=== PATIENT | male | born 1995 | race Caucasian/White ===

== ENCOUNTER 2019-02-18 20:20 | Emergency (ER) | payer MEDICAID ==
[~2019-02-18] VITALS: Ht 182.9 cm; Wt 82.0 kg
[2019-02-18] MEDS ORDERED: LORazepam 1 MG tablet PO ONE (21:10)
[2019-02-18] MEDS ORDERED: nicotine 14mg patch - 24hr TD ONE (21:10)
[2019-02-18 21:15] LABS: CLARITY,URINE CLOUDY (Clear); COLOR,URINE YELLOW (Yellow); GLUCOSE, URINE NEGATIVE (Neg); KETONES,URINE NEGATIVE (Neg); LEUKOCYTE ESTERASE ,URINE TRACE (Neg); NITRITES, URINE NEGATIVE (Neg); OCCULT BLOOD,URINE NEGATIVE (Neg); PROTEIN,URINE NEGATIVE (Neg); UA COLLECTION TYPE CLN CATCH MIDSTREAM
[2019-02-18 21:20] LABS: BASOPHILS % (AUTO) 0.5 % (0-1); EOSINOPHILS # (AUTO) 0.1 X10'3 (0-0.9); EOSINOPHILS % (AUTO) 1.3 % (0-6); HEMATOCRIT 42.5 % (42.0-52.0); HEMOGLOBIN 13.9 g/dl (14.0-17.9); LYMPHOCYTES # (AUTO) 2.5 X10'3 (1.1-4.8); LYMPHOCYTES % (AUTO) 37.8 % (21-51); MEAN CORPUSCULAR HEMOGLOBIN 28.1 PG (27.0-31.0); MEAN CORPUSCULAR HGB CONC 32.7 g/dL (33.0-36.5); MEAN CORPUSCULAR VOLUME 85.8 FL (78-98); MEAN PLATELET VOLUME 8.3 FL (7.4-10.4); MONOCYTES # (AUTO) 0.4 X10'3 (0-0.9); MONOCYTES % (AUTO) 5.5 % (2-12); NEUTROPHILS # (AUTO) 3.6 X10'3 (1.8-7.7); NEUTROPHILS % (AUTO) 54.9 % (42-75); PLATELET COUNT 167 X10'3 (140-440); RED BLOOD COUNT 4.95 X10'6 (4.70-6.10); RED CELL DISTRIBUTION WIDTH 12.9 % (11.5-14.5); WHITE BLOOD COUNT 6.6 X10'3 (4.5-11.0)
[2019-02-18 21:23] LABS: RBC,URINE NONE SEEN /HPF (0-2); WBC,URINE 0-4 /HPF (0-4)
[2019-02-18 21:24] LABS: AMORPHOUS URATES 4+; BACTERIA,URINE FEW /HPF (Neg); SQUAMOUS EPITHELIAL CELL,UR FEW /LPF (FEW)
[2019-02-18 21:27] LABS: URINE AMPHETAMINE SCREEN NEGATIVE (Neg); URINE BARBITUATE SCREEN NEGATIVE (Neg); URINE BENZODIAZEPINES SCREEN NEGATIVE (Neg); URINE CANNABINOID SCREEN POSITIVE (Neg); URINE COCAINE SCREEN NEGATIVE (Neg); URINE METHADONE SCREEN NEGATIVE (Neg); URINE OPIATE SCREEN NEGATIVE (Neg); URINE PHENCYCLIDINE SCREEN NEGATIVE (Neg)
[2019-02-18 21:29] LABS: ALANINE AMINOTRANSFERASE 48 U/L (12-78); ALBUMIN 4.3 G/DL (3.4-5.0); ALBUMIN/GLOBULIN RATIO 1.5 (1.1-1.5); ALKALINE PHOSPHATASE 71 IU/L (46-116); ANION GAP 8 (8-16); ASPARTATE AMINO TRANSFERASE 33 U/L (10-37); BILIRUBIN,TOTAL 0.6 MG/DL (0.1-1.0); BLOOD UREA NITROGEN 16 MG/DL (7-18); BUN/CREATININE RATIO 18.6 (5.4-32.0); CALCIUM 8.8 MG/DL (8.5-10.1); CHLORIDE 105 MMOL/L (99-107); CREATININE 0.86 MG/DL (0.60-1.10); GLUCOSE 96 MG/DL (70-104); POTASSIUM 4.1 MMOL/L (3.5-5.1); SODIUM 140 MMOL/L (135-145); TOTAL CARBON DIOXIDE 27.2 MMOL/L (24-32); TOTAL PROTEIN 7.2 G/DL (6.4-8.2); eGFR > 90 ML/MIN
[2019-02-18 21:43] LABS: ETHANOL < 0.010 GM/DL (0.0-0.010)
[2019-02-18] MEDS ORDERED: BUPR150T27 PO (21:48)
[2019-02-18] MEDS ORDERED: BUPR1FIL5 PO (21:48)
[2019-02-18] MEDS ORDERED: GABA600T13 PO (21:48)
[2019-02-18] MEDS ORDERED: CLON1TAB12 PO (21:48)
--- NOTE | 2019-02-18 22:29 | NUR ---
pt is feeling overwhelmed, reports recent struggles with employment and "getting back on his feet." pt made some statements about taking his meds to his grandma who called police. pt denies si but reports feeling "insanely depressed."
--- NOTE | 2019-02-19 02:34 | NUR ---
pt continues to sleep, no s/s of distress noted.
--- NOTE | 2019-02-19 04:49 | NUR ---
pt is sleeping, rr unlabored.
--- NOTE | 2019-02-19 05:40 | NUR ---
pt continues to sleep, no s/s of distress noted
[2019-02-19] MEDS: buPROPion SR 150mg tablet PO SCH (09:23)
[2019-02-19] MEDS: gabapentin 300mg capsule PO SCH ×3 (09:23→21:04)
[2019-02-19] MEDS: clonazePAM 1mg tablet PO SCH ×3 (09:23→21:04)
[2019-02-19] MEDS: buprenorphine/naloxone 2-0.5mg sublingual tablet SL SCH (09:24)
[2019-02-19] MEDS ORDERED: LORazepam 1 MG tablet PO ONE (11:00)
[2019-02-19] MEDS ORDERED: nicotine 21mg patch - 24 hr TD ONE (11:00)
[2019-02-19] MEDS ORDERED: LORazepam 2 mg/ml vial IM ONE (13:00)
[2019-02-19] MEDS ORDERED: haloperidol lactate 5mg/ml inj IM ONE (13:00)
[2019-02-19] MEDS ORDERED: diphenhydrAMINE 50 mg/ml inj IM ONE (13:00)
--- NOTE | 2019-02-19 13:30 | NUR ---
Patient medicated with Benadryl, haldol, and ativan. Became progressively more agitated and restless and angry. Yelling at staff and making threats of violence including "kicking us all" if we tried to stop him from going to have a cigarette. Verbalized "If you try anything I can take you out, you're all small". As he was yelling and acting out, the patient picked up a chair witht the intent to throw it at the staff. Security arrived and was able to intervene for the safety of staff and other patients.
--- NOTE | 2019-02-19 14:20 | NUR ---
Patient asleep after medications given. Respirations normal
--- NOTE | 2019-02-19 18:45 | NUR ---
Patient is sleeping, low fowlers position. Bed is in direct view from nursing station.
[2019-02-19] MEDS ORDERED: LORazepam 1 MG tablet PO PRN (20:35)
[2019-02-19] MEDS ORDERED: temazepam 15mg capsule PO ONE (20:35)
--- NOTE | 2019-02-19 21:00 | NUR ---
Patient is awake, cooperative, thought is linear. Patient denies H/I, S/I, at this time.
[2019-02-19] MEDS: NICOTINE POLACRILEX 2 MG LOZENGE BC PRN (21:09)
--- NOTE | 2019-02-20 05:12 | NUR ---
Patient is sleeping well, mid fowlers position in bed.
[2019-02-20 05:46] VITALS: BP 97/54
[2019-02-20] MEDS: clonazePAM 1mg tablet PO SCH (08:21)
[2019-02-20] MEDS: gabapentin 300mg capsule PO SCH (08:21)
[2019-02-20] MEDS: buPROPion SR 150mg tablet PO SCH (08:21)
[2019-02-20] MEDS: buprenorphine/naloxone 2-0.5mg sublingual tablet SL SCH (08:41)
--- NOTE | 2019-02-20 09:32 | NUR ---
pt awake. no issues at this time
[2019-02-20] MEDS: NICOTINE POLACRILEX 2 MG LOZENGE BC PRN (11:51)
== END 2019-02-20 12:29 ==
LOC: ER 20:20
DX: F32.9 Major depressive disorder, single episode, unspecified (principal); F41.9 Anxiety disorder, unspecified; F12.90 Cannabis use, unspecified, uncomplicated; Z79.899 Other long term (current) drug therapy
CPT/HCPCS: 36415; 80053; 80305; 80320; 81001; 84443; 85025; 96372; 99285; J1200; J1630; J2060

== ENCOUNTER 2019-02-20 11:19 | Inpatient (IN) | payer MEDICAID ==
[~2019-02-20] VITALS: Ht 182.9 cm; Wt 75.8 kg
[~2019-02-20 11:19] MED LIST: BUPR150T27 PO; BUPR1FIL5 PO; CLON1TAB12 PO; GABA600T13 PO
[2019-02-20] MEDS ORDERED: acetaminophen 325mg tablet PO PRN ×2 (12:50)
[2019-02-20] MEDS ORDERED: mag hydrox/Alum hydrox/simeth 30ml oral suspension PO PRN (12:50)
[2019-02-20] MEDS ORDERED: magnesium hydroxide 30ml (MOM) UD suspension PO PRN (12:50)
[2019-02-20] MEDS ORDERED: tuberculin, purif. prot. deriv. 5 units/0.1ml ID ONE (12:50)
[2019-02-20] MEDS ORDERED: loperamide 2mg capsule PO PRN (12:55)
[2019-02-20] MEDS ORDERED: LORazepam 1 MG tablet PO PRN (12:55)
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
[2019-02-20 13:06] VITALS: BP 104/69
[2019-02-20] MEDS: nicotine 21mg patch - 24 hr TD SCH (13:22)
--- NOTE | 2019-02-20 13:41 | NUR ---
Nursing Note: Contact information for pt. Pt's mother, Pilar Donovan [phone] and pt's grandmother, Lor [phone]. Pt's case filler at [facility] is Marylou [phone].
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
[2019-02-20] MEDS ORDERED: clonazePAM 1mg tablet PO ONE (19:40)
[2019-02-20 20:00] VITALS: BP 114/72
[2019-02-20] MEDS: clonazePAM 1mg tablet PO SCH (20:34)
[2019-02-20] MEDS: gabapentin 300mg capsule PO SCH (20:34)
[2019-02-20] MEDS: NICOTINE POLACRILEX 2 MG LOZENGE MM PRN (22:02)
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
[2019-02-21 07:10] LABS: HEMOGLOBIN A1C 5.2 % (4.5-6.2)
[2019-02-21 07:20] LABS: CHOLESTEROL 133 MG/DL (0-200); HDL CHOLESTEROL 45 MG/DL (35-60); LDL CHOLESTEROL 78 MG/DL (50-100); TRIGLYCERIDES 55 MG/DL (20-135)
[2019-02-21] MEDS: clonazePAM 1mg tablet PO SCH ×3 (07:58→20:17)
[2019-02-21] MEDS: buPROPion SR 150mg tablet PO SCH (07:58)
[2019-02-21] MEDS: buprenorphine/naloxone 2-0.5mg sublingual tablet SL SCH (07:58)
[2019-02-21] MEDS: gabapentin 300mg capsule PO SCH ×3 (07:59→20:17)
[2019-02-21] MEDS ORDERED: benztropine 1mg tablet PO STA (08:20)
[2019-02-21] MEDS ORDERED: benztropine 1mg tablet ONE (08:21)
[2019-02-21] MEDS: nicotine 21mg patch - 24 hr TD SCH (08:24)
[2019-02-21] MEDS: NICOTINE POLACRILEX 2 MG LOZENGE MM PRN ×5 (11:00→22:19)
--- NOTE | 2019-02-21 12:26 | NUR ---
Malnutrition consult: No documented wt hx however current wt appropriate with BMI 21.7. Pt with no edema or wounds. Currently on regular diet with documented 100% PO intake meeting nutrient needs. Pt currently does not meet criteria for malnutrition. Will continue to follow. Addendum: 02/21/19 at [address] Amended: Links added.
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
[2019-02-21] MEDS: hydrOXYzine 25 MG tablet PO PRN (19:14)
[2019-02-21 20:00] VITALS: BP 112/70
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
[2019-02-22] MEDS: hydrOXYzine 25 MG tablet PO PRN (02:18)
[2019-02-22] MEDS: NICOTINE POLACRILEX 2 MG LOZENGE MM PRN ×5 (04:25→20:27)
[2019-02-22] MEDS: clonazePAM 1mg tablet PO SCH ×3 (07:13→21:00)
[2019-02-22] MEDS: buPROPion SR 150mg tablet PO SCH (07:13)
[2019-02-22] MEDS: gabapentin 300mg capsule PO SCH ×3 (07:13→20:56)
[2019-02-22] MEDS: buprenorphine/naloxone 2-0.5mg sublingual tablet SL SCH (07:14)
[2019-02-22] MEDS: nicotine 21mg patch - 24 hr TD SCH (07:17)
[2019-02-22 08:00] VITALS: BP 98/69
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
[2019-02-22 19:00] VITALS: BP 102/64
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
[2019-02-23] MEDS: gabapentin 300mg capsule PO SCH ×3 (07:26→20:27)
[2019-02-23] MEDS: clonazePAM 1mg tablet PO SCH ×3 (07:26→20:28)
[2019-02-23] MEDS: buPROPion SR 150mg tablet PO SCH (07:26)
[2019-02-23] MEDS: buprenorphine/naloxone 2-0.5mg sublingual tablet SL SCH (07:27)
[2019-02-23] MEDS: nicotine 21mg patch - 24 hr TD SCH (07:30)
[2019-02-23 08:00] VITALS: BP 98/66
[2019-02-23] MEDS ORDERED: ATOMOXETINE 80 MG PO SCH (08:00)
[2019-02-23] MEDS: ATOMOXETINE 80 MG PO SCH (08:00)
[2019-02-23] MEDS: NICOTINE POLACRILEX 2 MG LOZENGE MM PRN ×4 (08:51→20:28)
[2019-02-23] MEDS: hydrOXYzine 25 MG tablet PO PRN ×2 (10:29→21:41)
[2019-02-23] MEDS ORDERED: ziprasidone 20mg capsule PO STA (12:45)
[2019-02-23] MEDS ORDERED: LORazepam 1 MG tablet PO STA (12:45)
[2019-02-23] MEDS ORDERED: diphenhydrAMINE 25mg capsule PO STA (12:45)
[2019-02-23] MEDS ORDERED: clonazePAM 1mg tablet PO ONE (13:30)
[2019-02-23] MEDS ORDERED: NICOTINE POLACRILEX 2 MG LOZENGE BC ONE (13:40)
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
--- NOTE | 2019-02-23 18:08 | NUR ---
Kevin RIOS notified that pt ran out of Strattera at home it is non-formulary with hospital pharmacy.
[2019-02-23 20:00] VITALS: BP 119/70
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
[2019-02-24] MEDS: NICOTINE POLACRILEX 2 MG LOZENGE MM PRN ×6 (05:48→23:53)
[2019-02-24] MEDS: buPROPion SR 150mg tablet PO SCH ×2 (07:30→20:46)
[2019-02-24] MEDS: clonazePAM 1mg tablet PO SCH ×3 (07:30→20:36)
[2019-02-24] MEDS: gabapentin 300mg capsule PO SCH ×3 (07:30→20:35)
[2019-02-24] MEDS: buprenorphine/naloxone 2-0.5mg sublingual tablet SL SCH (07:31)
[2019-02-24] MEDS: nicotine 21mg patch - 24 hr TD SCH (07:33)
[2019-02-24] MEDS: ATOMOXETINE 80 MG PO SCH (08:00)
[2019-02-24 08:20] VITALS: BP 111/60
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
--- NOTE | 2019-02-24 14:45 | NUR ---
PLEASE DISREGARD THIS NOTE IT WAS ACCIDENTLY SAVED BEFORE COMPLETION BY HITTING A RANDOM RIVAS ON THE KEYBOARD.
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
[2019-02-24 19:57] VITALS: BP 96/51
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
[2019-02-25] MEDS: NICOTINE POLACRILEX 2 MG LOZENGE MM PRN ×7 (04:34→21:01)
[2019-02-25 07:30] VITALS: BP 110/84
[2019-02-25] MEDS: buPROPion SR 150mg tablet PO SCH ×2 (07:34→20:35)
[2019-02-25] MEDS: gabapentin 300mg capsule PO SCH ×3 (07:34→20:37)
[2019-02-25] MEDS: buprenorphine/naloxone 2-0.5mg sublingual tablet SL SCH (07:34)
[2019-02-25] MEDS: clonazePAM 1mg tablet PO SCH ×3 (07:34→20:35)
[2019-02-25] MEDS: nicotine 21mg patch - 24 hr TD SCH (07:35)
[2019-02-25] MEDS: ATOMOXETINE 80 MG PO SCH (08:00)
[2019-02-25] MEDS: hydrOXYzine 25 MG tablet PO PRN (09:56)
[2019-02-25] MEDS: ATOMOXETINE 80 MG CAPSULE PO SCH (11:54)
--- NOTE | 2019-02-25 14:32 | NUR ---
Good appetite, eating 75-100% of meals, meeting nutrition needs. Will continue to follow. Recommend: 1. continue regular diet 2. weekly wts Addendum: 02/25/19 at [address] Amended: Links added.
[2019-02-25] MEDS ORDERED: clonazePAM 1mg tablet PO ONE (16:50)
--- NOTE | 2019-02-25 17:45 | NUR ---
NURSING PROGRESS NOTE FOR 02/24/19: Legal hold:5250 Client on involuntary status for DTS/DTO Report received from nurse with use of SBAR: CHARLIE Mendes Why are they here: Pt. awake at start of shift sitting in hallway making phone calls. Pt. is anxious, tremulous, hyperverbal, easily distracted, and perseverates regarding court today and discharge. Pt. misplaced his nicotine patch and became agitated and paranoid, stating, "I think someone hid my nicotine patch on purpose". Pt. given Atarax 50mg po with OK effect. Pt. became more calm and afternoon but remains hyperverbal and perseverates on his discharge stating, "I need to see my primary phsyciatrist to get me restarted on the right ADHD meds. If only I get the right meds, that's what this is all about, if I was on the right meds I wouldn't have this problem." Pt. had hearing today and 5250 upheld. Pt. initially handeled that well but then pt. became agitated, becoming upset with his provider. Pt. given prn klonopin with good effect. Pt. kept on rubbing his nicotine patch making his skin reddened, RN took away pt.'s nicotine patch away. Pt. believes the majority of his problem is because of not having his ADHD medication. Pt. started on Straterra today. Assessment S/I, H/I: Pt denies A/VH: Pt denies Sleep: Pt reported not being able to sleep much last night ADL's: independent Group Yes Were meds taken: Yes Any med S/E: None noted or reported Mental Status Exam Appearance: Clean clothes, somewhat messy hair Eye contact: Good Behavior: cooperative, socializes with staff and peers, friendly, forthright Speech: hyperverbal, pressured speech Mood: anxious, frustrated, agitated. Affect: calm, anxious at times Thought process: perseverates on getting ADHD medication, on discharge. Thought Content: focused on discharge. Cognition: A/O x 4 Insight: poor Judgment: poor Interventions PRN's used: Nicotine lozenges, atarax, klonopin. Interventions: 1:1 assessment, active listening, therapeutic conversation, medication administration/education/monitoring, positive reinforcement, encouraged pt to write things he wishes to discuss with PA down as he expresses fear that he may lose focus and forget what he wished to say or ask, Q15 min safety checks Restraints/seclusion/emergency medication:N/A Justification of Continued Inpatient Treatment: Pt needs crisis stabilization, medication adjustment and management, support and assistance with pt's rights and legal rights in a safe, therapeutic environment.
[2019-02-25 20:00] VITALS: BP 115/74
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
[2019-02-26] MEDS: buPROPion SR 150mg tablet PO SCH ×2 (07:27→20:03)
[2019-02-26] MEDS: clonazePAM 1mg tablet PO SCH ×3 (07:27→20:03)
[2019-02-26] MEDS: gabapentin 300mg capsule PO SCH ×3 (07:28→20:03)
[2019-02-26] MEDS: buprenorphine/naloxone 2-0.5mg sublingual tablet SL SCH (07:29)
[2019-02-26] MEDS: ATOMOXETINE 80 MG CAPSULE PO SCH (07:29)
[2019-02-26] MEDS: nicotine 21mg patch - 24 hr TD SCH (07:29)
[2019-02-26 08:00] VITALS: BP 110/65
[2019-02-26] MEDS: NICOTINE POLACRILEX 2 MG LOZENGE MM PRN ×5 (08:47→22:07)
[2019-02-26] MEDS: hydrOXYzine 25 MG tablet PO PRN ×2 (15:34→22:07)
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
[2019-02-26 20:51] VITALS: BP 105/75
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
[2019-02-27] MEDS: nicotine 21mg patch - 24 hr TD SCH (07:04)
[2019-02-27] MEDS: buprenorphine/naloxone 2-0.5mg sublingual tablet SL SCH (07:04)
[2019-02-27] MEDS: buPROPion SR 150mg tablet PO SCH (07:04)
[2019-02-27] MEDS: clonazePAM 1mg tablet PO SCH ×2 (07:04→12:17)
[2019-02-27] MEDS: ATOMOXETINE 80 MG CAPSULE PO SCH (07:04)
[2019-02-27] MEDS: gabapentin 300mg capsule PO SCH ×2 (07:04→12:17)
[2019-02-27 08:34] VITALS: BP 107/66
[2019-02-27] MEDS: NICOTINE POLACRILEX 2 MG LOZENGE MM PRN ×3 (10:25→14:17)
[2019-02-27] MEDS ORDERED: NICO-687 TD (14:45)
[2019-02-27] MEDS ORDERED: BUPR-84 PO (14:45)
[2019-02-27] MEDS ORDERED: HYDR-3686 PO (14:45)
--- NOTE | 2019-02-27 15:20 | NUR ---
Discharge Note: Patient discharged to home, ambulatory, with all personal possessions as listed per inventory sheet. Patient picked up by his grandmother and will return to her home to live via car. Ambulated to the [facility] accompanied staff. Given prescriptions for Wellbutrin, Atarax and Nicotine supplements. Charlie called into [facility] on [address] Patient is unsure if he will return to smoking once he is discharged. Denies suicidal ideation or intent. Condition is stable and patient admits to an improvement in his mental status since admission. All follow-up instructions and medications reviewed with patient who acknowledged understanding of information.
== END 2019-02-27 15:25 | disposition home or self-care (01) | DRG 751 ==
LOC: ADULT MH 12:33
PROVIDERS: ADMIT Psychiatry & Neurology Psychiatry; ATTEND Psychiatry & Neurology Psychiatry
DX: F33.2 Major depressive disorder, recurrent severe without psychotic features (principal); F12.90 Cannabis use, unspecified, uncomplicated; F17.210 Nicotine dependence, cigarettes, uncomplicated; F41.9 Anxiety disorder, unspecified; F90.9 Attention-deficit hyperactivity disorder, unspecified type; Z88.8 Allergy status to other drugs, medicaments and biological substances; Z91.018 Allergy to other foods; Z79.899 Other long term (current) drug therapy; Z82.49 Family history of ischemic heart disease and other diseases of the circulatory system
CPT/HCPCS: 36415; 80061; 83036; 87081; Q0163; Z7610

== ENCOUNTER 2019-08-08 10:22 | Emergency (ER) | payer MEDICAID ==
[~2019-08-08] VITALS: Ht 182.9 cm; Wt 72.7 kg
[~2019-08-08 10:22] MED LIST changes: +BUPR-72 PO; -BUPR150T27 PO; +HYDR-3686 PO; +NICO-687 TD
[2019-08-08 10:36] VITALS: BP 116/63
[2019-08-08] MEDS ORDERED: MUPI22OI30 TOP (10:57)
== END 2019-08-08 11:08 | disposition home or self-care (01) ==
LOC: ER 10:22
DX: S00.81XA Abrasion of other part of head, initial encounter (principal); S30.811A Abrasion of abdominal wall, initial encounter; S20.419A Abrasion of unspecified back wall of thorax, initial encounter; S40.812A Abrasion of left upper arm, initial encounter; S40.811A Abrasion of right upper arm, initial encounter; S80.812A Abrasion, left lower leg, initial encounter; S80.811A Abrasion, right lower leg, initial encounter; F32.9 Major depressive disorder, single episode, unspecified; F12.90 Cannabis use, unspecified, uncomplicated; F15.90 Other stimulant use, unspecified, uncomplicated; Z88.8 Allergy status to other drugs, medicaments and biological substances; Z91.018 Allergy to other foods; Z79.899 Other long term (current) drug therapy; W57.XXXA Bitten or stung by nonvenomous insect and other nonvenomous arthropods, initial encounter; Y93.89 Activity, other specified; Y92.89 Other specified places as the place of occurrence of the external cause; Y99.8 Other external cause status
CPT/HCPCS: 99283

== ENCOUNTER 2019-08-15 19:04 | Emergency (ER) | payer MEDICAID ==
[~2019-08-15] VITALS: Ht 182.9 cm; Wt 72.0 kg
[2019-08-15 19:21] VITALS: BP 121/75
[2019-08-15] MEDS ORDERED: PERM60CR19 TOP (20:44)
== END 2019-08-15 21:05 | disposition home or self-care (01) ==
LOC: ER 19:05
DX: B86 Scabies (principal); F32.9 Major depressive disorder, single episode, unspecified; F12.90 Cannabis use, unspecified, uncomplicated; F15.90 Other stimulant use, unspecified, uncomplicated; Z59.0 Homelessness; Z88.8 Allergy status to other drugs, medicaments and biological substances; Z91.018 Allergy to other foods; Z79.899 Other long term (current) drug therapy
CPT/HCPCS: 99283

== ENCOUNTER 2019-08-25 15:52 | Emergency (ER) | payer MEDICAID ==
[~2019-08-25 15:52] MED LIST changes: +PERM60CR19 TOP
== END 2019-08-25 17:15 | disposition left against medical advice (07) ==
LOC: ER 15:53
DX: R21 Rash and other nonspecific skin eruption (principal); Z53.21 Procedure and treatment not carried out due to patient leaving prior to being seen by health care provider

== ENCOUNTER 2019-08-25 17:43 | Emergency (ER) | payer MEDICAID ==
[~2019-08-25] VITALS: Ht 182.9 cm; Wt 84.1 kg
[2019-08-25 18:19] VITALS: BP 112/81
--- NOTE | 2019-08-25 18:22 | NUR ---
AFTER PT WAS TRIAGED, PT INFORMED THAT THE ER HAS BEEN VERY BUSY TODAY AND THAT THERE MAY BE AN EXTENDED WAIT BEFORE A PROVIDER CAN SEE HIM. PT BECAME IRRITATED WHEN RETAIL ANALYST COULD NOT GIVE HIM A TIME LINE AND SAID THAT HE WAS GOING TO LEAVE AND COME BACK ANOTHER TIME. PT INFORMED THAT IT COULD NOT BE GAURENTEED THAT THE WAIT WOULD BE BETTER, PT INSISTED ON LEAVING AND WAS OBSERVED LEAVING T2 AND GOING OUT OF THE ER LOBBY DOOR.
== END 2019-08-25 18:27 | disposition left against medical advice (07) ==
LOC: ER 17:44
DX: M25.572 Pain in left ankle and joints of left foot (principal); Z53.21 Procedure and treatment not carried out due to patient leaving prior to being seen by health care provider

== ENCOUNTER 2019-08-29 10:53 | Emergency (ER) | payer MEDICAID ==
[~2019-08-29] VITALS: Ht 182.9 cm; Wt 82.9 kg
[2019-08-29] MEDS ORDERED: CEPH250T PO (12:25)
[2019-08-29] MEDS ORDERED: MUPI22OI30 TOP (12:25)
[2019-08-29 13:05] VITALS: BP 130/72
== END 2019-08-29 12:50 | disposition home or self-care (01) ==
LOC: ER 10:54
DX: L08.9 Local infection of the skin and subcutaneous tissue, unspecified (principal); F32.9 Major depressive disorder, single episode, unspecified; F12.90 Cannabis use, unspecified, uncomplicated; F15.90 Other stimulant use, unspecified, uncomplicated; Z59.0 Homelessness; Z88.8 Allergy status to other drugs, medicaments and biological substances; Z91.011 Allergy to milk products; Z79.2 Long term (current) use of antibiotics; Z79.899 Other long term (current) drug therapy
CPT/HCPCS: 99283

== ENCOUNTER 2019-09-21 13:17 | Emergency (ER) | payer MEDICAID ==
[~2019-09-21] VITALS: Ht 182.9 cm; Wt 84.1 kg
[~2019-09-21 13:17] MED LIST changes: -PERM60CR19 TOP
[2019-09-21 13:20] VITALS: BP 121/67
[2019-09-21] MEDS ORDERED: buprenorphine/naloxone 8MG-2MG SUBlingual film SL ONE (14:25)
[2019-09-21] MEDS ORDERED: clonazePAM 1mg tablet PO ONE (14:25)
[2019-09-21] MEDS ORDERED: BUPR150T14 PO (14:29)
== END 2019-09-21 14:48 | disposition home or self-care (01) ==
LOC: ER 13:18
DX: F41.9 Anxiety disorder, unspecified (principal); F32.9 Major depressive disorder, single episode, unspecified; Z76.0 Encounter for issue of repeat prescription; F12.90 Cannabis use, unspecified, uncomplicated; F15.90 Other stimulant use, unspecified, uncomplicated; Z59.0 Homelessness; Z79.899 Other long term (current) drug therapy; Z88.8 Allergy status to other drugs, medicaments and biological substances; Z91.018 Allergy to other foods
CPT/HCPCS: 99283

== ENCOUNTER 2019-10-05 17:18 | Emergency (ER) | payer MEDICAID ==
[~2019-10-05] VITALS: Ht 182.9 cm; Wt 89.0 kg
[~2019-10-05 17:18] MED LIST changes: +BUPR150T14 PO
[2019-10-05 17:21] VITALS: BP 124/63
[2019-10-05] MEDS ORDERED: clindamycin phosphate 150mg/ml inj. IM ONE (17:45)
[2019-10-05] MEDS ORDERED: SULF1TAB49 PO (17:47)
[2019-10-05] MEDS ORDERED: CEPH500C5 PO (17:47)
== END 2019-10-05 18:10 | disposition home or self-care (01) ==
LOC: ER 17:19
DX: L03.221 Cellulitis of neck (principal); F12.90 Cannabis use, unspecified, uncomplicated; F15.90 Other stimulant use, unspecified, uncomplicated; Z59.0 Homelessness
CPT/HCPCS: 96372; 99283; J3490

== ENCOUNTER 2019-10-08 11:24 | Inpatient (IN) | payer MEDICAID ==
[~2019-10-08] VITALS: Ht 182.9 cm; Wt 84.1 kg
[~2019-10-08 11:24] MED LIST changes: -BUPR1FIL5 PO; +BUPR1FIL5 SL; +CEPH500C5 PO; +SULF1TAB49 PO
[2019-10-08] MEDS ORDERED: vancomycin/NS 1 GM ADD-VANTAGE 250 ML IV ONE (11:50)
[2019-10-08 12:18] LABS: BASOPHILS % (AUTO) 0.4 % (0-1); EOSINOPHILS # (AUTO) 0.1 X10'3 (0-0.9); EOSINOPHILS % (AUTO) 1.1 % (0-6); HEMOGLOBIN 12.4 g/dl (14.0-17.9); LYMPHOCYTES % (AUTO) 16.2 % (21-51); MEAN CORPUSCULAR HEMOGLOBIN 26.9 PG (27.0-31.0); MEAN CORPUSCULAR HGB CONC 32.5 g/dL (33.0-36.5); MEAN CORPUSCULAR VOLUME 82.7 FL (78-98); MEAN PLATELET VOLUME 8.5 FL (7.4-10.4); MONOCYTES # (AUTO) 0.7 X10'3 (0-0.9); MONOCYTES % (AUTO) 5.4 % (2-12); NEUTROPHILS # (AUTO) 9.7 X10'3 (1.8-7.7); NEUTROPHILS % (AUTO) 76.9 % (42-75); PLATELET COUNT 189 X10'3 (140-440); RED CELL DISTRIBUTION WIDTH 14.2 % (11.5-14.5); WHITE BLOOD COUNT 12.6 X10'3 (4.5-11.0)
[2019-10-08 12:31] LABS: ALANINE AMINOTRANSFERASE 41 U/L (12-78); ALBUMIN 3.9 G/DL (3.4-5.0); ALKALINE PHOSPHATASE 77 IU/L (46-116); ANION GAP 8 (8-16); ASPARTATE AMINO TRANSFERASE 36 U/L (10-37); BILIRUBIN,TOTAL 0.8 MG/DL (0.1-1.0); BLOOD UREA NITROGEN 8 MG/DL (7-18); BUN/CREATININE RATIO 10.3 (5.4-32.0); CHLORIDE 101 MMOL/L (99-107); CREATININE 0.78 MG/DL (0.60-1.10); GLUCOSE 92 MG/DL (70-104); SODIUM 134 MMOL/L (135-145); TOTAL CARBON DIOXIDE 25.3 MMOL/L (24-32); TOTAL PROTEIN 7.7 G/DL (6.4-8.2); eGFR > 90 ML/MIN
--- NOTE | 2019-10-08 12:42 | NUR ---
PHARMACY WORKING ON MIXING MEDICATION.
[2019-10-08] MEDS ORDERED: iohexol 300mg/ml 100ml inj. ONE (12:47)
--- NOTE | 2019-10-08 13:23 | NUR ---
pt back from ct, abx started again
[2019-10-08] MEDS ORDERED: ketorolac tromethamine 15mg/ml inj. IV ONE (14:30)
[2019-10-08] MEDS ORDERED: NICO-687 TOP (14:48)
[2019-10-08] MEDS ORDERED: CEPH500C2 PO (14:48)
[2019-10-08] MEDS ORDERED: SULF1TAB49 PO (14:48)
[2019-10-08] MEDS ORDERED: cefepime 1GM in D5W 50mL 50 ML IV ONE (15:15)
--- NOTE | 2019-10-08 15:41 | NUR ---
talked to anamaria hernández at [facility] where pt is staying to let them know he will be admitted. phone #[phone]
[2019-10-08] MEDS ORDERED: normal saline 1000ml 1,000 ML IV SCH (15:44)
[2019-10-08] MEDS ORDERED: magnesium Cl slow-release 64mg tablet PO PRN (15:45)
[2019-10-08] MEDS ORDERED: ondansetron/PF 4mg/2ml inj IV PRN (15:45)
[2019-10-08] MEDS ORDERED: magnesium 4gm in 100ml NS 100 ML IV PRN (15:45)
[2019-10-08] MEDS ORDERED: potassium CL 10mEq/100ml bag 100 ML IV PRN ×2 (15:45)
[2019-10-08] MEDS ORDERED: potassium Cl 20 mEq SR tablet PO PRN ×2 (15:45)
[2019-10-08] MEDS ORDERED: mag hydrox/Alum hydrox/simeth 30ml oral suspension PO PRN (15:45)
[2019-10-08] MEDS ORDERED: magnesium 2GM in 50ml NS 50 ML IV PRN (15:45)
--- NOTE | 2019-10-08 16:43 | NUR ---
pt waiting for room assignment, pt resting comfortably
--- NOTE | 2019-10-08 17:32 | NUR ---
Called to surgical to give report, rn unavaliable will call me back
--- NOTE | 2019-10-08 18:29 | NUR ---
Gave report to Lynsey Spence RN.
--- NOTE | 2019-10-08 19:04 | NUR ---
Patient in room [facility] 352. I have received report from CHARLIE Guzman and had the opportunity to ask questions and assume patient care. Addendum: 10/08/19 at 1904 by Ayla Fuchs RN Amended: Links added.
[2019-10-08 20:00] VITALS: BP 114/72
[2019-10-08] MEDS ORDERED: vancomycin/NS 1 GM ADD-VANTAGE 250 ML IV SCH (20:00)
[2019-10-08] MEDS: K and/or MAG REPLACEMENT MC SCH (20:00)
[2019-10-08] MEDS: lactobacillus rhamnosus 10,000 MMU CELLS/CAPSULE PO SCH (20:29)
[2019-10-08] MEDS ORDERED: buprenorphine/naloxone 8MG-2MG SUBlingual film SL ONE ×2 (21:10→23:10)
[2019-10-08] MEDS ORDERED: clonazePAM 1mg tablet PO ONE (21:10)
[2019-10-08] MEDS ORDERED: ketorolac trometh. 30mg/ml inj. IV ONE (23:20)
[2019-10-08 23:34] LABS: URINE AMPHETAMINE SCREEN NEGATIVE (Neg); URINE BARBITUATE SCREEN NEGATIVE (Neg); URINE BENZODIAZEPINES SCREEN NEGATIVE (Neg); URINE CANNABINOID SCREEN POSITIVE (Neg); URINE COCAINE SCREEN NEGATIVE (Neg); URINE METHADONE SCREEN NEGATIVE (Neg); URINE OPIATE SCREEN NEGATIVE (Neg); URINE PHENCYCLIDINE SCREEN NEGATIVE (Neg)
[2019-10-09] VITALS: BP 95/49
[2019-10-09] MEDS: piperacillin/tazo 3.375gm/50ml 50 ML IV SCH ×2 (00:22→09:45)
--- NOTE | 2019-10-09 01:32 | NUR ---
pt c/o pain on his neck, no pain medication ordered, pt stated toradol helped with his pain which was given to ER, notified Dr. Parks with order x1, given with relief
[2019-10-09 06:17] LABS: BASOPHILS # (AUTO) 0.1 X10'3 (0-0.2); BASOPHILS % (AUTO) 0.7 % (0-1); EOSINOPHILS # (AUTO) 0.3 X10'3 (0-0.9); EOSINOPHILS % (AUTO) 2.9 % (0-6); HEMATOCRIT 37.9 % (42.0-52.0); HEMOGLOBIN 12.4 g/dl (14.0-17.9); LYMPHOCYTES # (AUTO) 2.4 X10'3 (1.1-4.8); LYMPHOCYTES % (AUTO) 26.1 % (21-51); MEAN CORPUSCULAR HEMOGLOBIN 27.3 PG (27.0-31.0); MEAN CORPUSCULAR HGB CONC 32.7 g/dL (33.0-36.5); MEAN CORPUSCULAR VOLUME 83.3 FL (78-98); MEAN PLATELET VOLUME 9.4 FL (7.4-10.4); MONOCYTES # (AUTO) 0.6 X10'3 (0-0.9); MONOCYTES % (AUTO) 6.9 % (2-12); NEUTROPHILS % (AUTO) 63.4 % (42-75); PLATELET COUNT 176 X10'3 (140-440); RED BLOOD COUNT 4.55 X10'6 (4.70-6.10); RED CELL DISTRIBUTION WIDTH 13.9 % (11.5-14.5); WHITE BLOOD COUNT 9.4 X10'3 (4.5-11.0)
[2019-10-09 06:22] LABS: ALBUMIN 3.3 G/DL (3.4-5.0); ANION GAP 9 (8-16); BLOOD UREA NITROGEN 10 MG/DL (7-18); BUN/CREATININE RATIO 12.2 (5.4-32.0); CHLORIDE 104 MMOL/L (99-107); CREATININE 0.82 MG/DL (0.60-1.10); GLUCOSE 79 MG/DL (70-104); MAGNESIUM 2.5 MG/DL (1.5-2.4); POTASSIUM 4.2 MMOL/L (3.5-5.1); SODIUM 139 MMOL/L (135-145); TOTAL CARBON DIOXIDE 26.4 MMOL/L (24-32); eGFR > 90 ML/MIN
--- NOTE | 2019-10-09 06:30 | NUR ---
Problems reprioritized. Patient report given, questions answered & plan of care reviewed with CHARLIE TAPIA.
[2019-10-09] MEDS ORDERED: vancomycin/NS 1 GM ADD-VANTAGE 250 ML IV SCH (08:00)
[2019-10-09] MEDS: K and/or MAG REPLACEMENT MC SCH (08:00)
[2019-10-09] MEDS ORDERED: VANCOmycin 1250MG/NS 250ml Bag 250 ML IV SCH (08:00)
[2019-10-09] MEDS ORDERED: nicotine 21mg patch - 24 hr TD SCH ×2 (08:00→11:20)
[2019-10-09] MEDS: lactobacillus rhamnosus 10,000 MMU CELLS/CAPSULE PO SCH (09:45)
[2019-10-09] MEDS ORDERED: buPROPion SR 150mg tablet PO SCH (11:30)
--- NOTE | 2019-10-09 11:55 | NUR ---
Patient walking quickly toward elevator. Ran after patient due to staff saying patient has not signed AMA and might possibly have a PIV in still. Patient was stopped at the elevator and was asked about PIV, patient stated that he had pulled it out already. Patient was asked to show his arms to confirm the PIV was no longer in place. There was not a PIV present.
--- NOTE | 2019-10-09 12:01 | NUR ---
This nurse was told that pt. was leaving AMA by community development officer. Told he was leaving floor with IV still in. Staff ran to find pt. This RN unable to find pt. however another nurse was able to. She states he took his IV out and that RN states she did not see any IV in either arm.That RN stated pt. wanted to go outside and smoke a cigarette, however he was not willing to come back. made aware.
--- NOTE | 2019-10-09 12:04 | NUR ---
Pt. left AMA.
[2019-10-09] MEDS ORDERED: buprenorphine/naloxone 8MG-2MG SUBlingual film SL SCH (13:00)
[2019-10-09] MEDS ORDERED: buprenorphine/naloxone 2-0.5mg sublingual tablet SL SCH (13:00)
[2019-10-09] MEDS ORDERED: clonazePAM 1mg tablet PO SCH (13:00)
[2019-10-09] MEDS ORDERED: DOXY100C77 PO (13:06)
[2019-10-09] MEDS ORDERED: CEPH-572 PO (13:06)
== END 2019-10-09 11:54 | disposition left against medical advice (07) | DRG 383 ==
LOC: ER 11:25 → ED HOLD 15:55 → SUR 3N 17:54
PROVIDERS: ADMIT Internal Medicine; ATTEND Internal Medicine
DX: L03.221 Cellulitis of neck (principal); F12.90 Cannabis use, unspecified, uncomplicated; F17.200 Nicotine dependence, unspecified, uncomplicated; F41.9 Anxiety disorder, unspecified; F32.9 Major depressive disorder, single episode, unspecified; L02.11 Cutaneous abscess of neck; Z53.29 Procedure and treatment not carried out because of patient's decision for other reasons; Z88.8 Allergy status to other drugs, medicaments and biological substances; Z79.899 Other long term (current) drug therapy; Z59.0 Homelessness
CPT/HCPCS: 36415; 70491; 80048; 80053; 80305; 83605; 83735; 84145; 85025; 85610; 87040; 87081; 96365; 96375; 99285; G0378; J0692; J1885; J2543; J3370; J7030; Q9967

== ENCOUNTER 2019-10-09 12:37 | Emergency (ER) | payer MEDICAID ==
[~2019-10-09] VITALS: Ht 182.9 cm; Wt 84.0 kg
[~2019-10-09 12:37] MED LIST changes: +CEPH500C2 PO; +NICO-687 TOP
[2019-10-09 12:46] VITALS: BP 117/68
[2019-10-09] MEDS ORDERED: CEPH-572 PO (13:06)
[2019-10-09] MEDS ORDERED: DOXY100C77 PO (13:06)
== END 2019-10-09 13:40 | disposition home or self-care (01) ==
LOC: ER 12:37
DX: L03.221 Cellulitis of neck (principal); F41.9 Anxiety disorder, unspecified; F32.9 Major depressive disorder, single episode, unspecified; F12.90 Cannabis use, unspecified, uncomplicated; F15.90 Other stimulant use, unspecified, uncomplicated; Z59.0 Homelessness; Z88.8 Allergy status to other drugs, medicaments and biological substances; Z79.899 Other long term (current) drug therapy
CPT/HCPCS: 99283

== ENCOUNTER 2020-01-18 14:21 | Emergency (ER) | payer MEDICAID ==
[~2020-01-18] VITALS: Ht 182.9 cm; Wt 82.0 kg
[~2020-01-18 14:21] MED LIST changes: -BUPR-72 PO; -BUPR150T14 PO; -CEPH500C5 PO; -GABA600T13 PO; -HYDR-3686 PO; -NICO-687 TD
[2020-01-18 16:04] VITALS: BP 118/79
== END 2020-01-18 16:00 | disposition home or self-care (01) ==
LOC: ER 14:22
DX: L72.3 Sebaceous cyst (principal); L08.9 Local infection of the skin and subcutaneous tissue, unspecified; F12.90 Cannabis use, unspecified, uncomplicated; F15.90 Other stimulant use, unspecified, uncomplicated; Z59.0 Homelessness; Z91.011 Allergy to milk products; Z88.8 Allergy status to other drugs, medicaments and biological substances; Z79.2 Long term (current) use of antibiotics; Z79.899 Other long term (current) drug therapy
CPT/HCPCS: 99281

== ENCOUNTER 2020-01-20 14:12 | Emergency (ER) | payer MEDICAID ==
[~2020-01-20] VITALS: Ht 182.9 cm; Wt 79.5 kg
[2020-01-20 14:15] VITALS: BP 112/68
[2020-01-20] MEDS ORDERED: LORazepam 2 mg/ml vial IM ONE (17:10)
[2020-01-20] MEDS ORDERED: TETanus/Pertussis (Acell)/Diphther VAC/PF (Tdap-Adult) 0.5ml syringe IMVAC ONE ×2 (17:10→18:20)
[2020-01-20] MEDS ORDERED: LIDOcaine 1% W/epiNEPHrine 1:200,000 10ml vial IJ ONE (17:10)
[2020-01-20] MEDS ORDERED: CLIN150C2 PO (18:30)
== END 2020-01-20 18:42 | disposition home or self-care (01) ==
LOC: ER 14:12
DX: L02.211 Cutaneous abscess of abdominal wall (principal); L02.11 Cutaneous abscess of neck; R53.83 Other fatigue; F12.90 Cannabis use, unspecified, uncomplicated; F15.90 Other stimulant use, unspecified, uncomplicated; Z59.0 Homelessness; Z88.5 Allergy status to narcotic agent; Z79.899 Other long term (current) drug therapy; Z91.018 Allergy to other foods
CPT/HCPCS: 10060; 87070; 87077; 87186; 90471; 90715; 96372; 99284; J2060

== ENCOUNTER 2020-01-22 11:40 | Emergency (ER) | payer MEDICAID ==
[~2020-01-22] VITALS: Ht 182.9 cm; Wt 83.1 kg
[~2020-01-22 11:40] MED LIST changes: +CLIN150C2 PO
[2020-01-22] MEDS ORDERED: ondansetron 4mg rapidly disintigrating tab PO ONE (13:25)
[2020-01-22] MEDS ORDERED: LORazepam 1 MG tablet PO ONE (13:25)
[2020-01-22] MEDS: morphine 4 MG/ML inj SYRINge IM ONE ×2 (13:37→13:42)
[2020-01-22] MEDS ORDERED: morphine 4 MG/ML inj SYRINge IM ONE (14:15)
[2020-01-22 15:22] VITALS: BP 117/73
== END 2020-01-22 15:23 | disposition home or self-care (01) ==
LOC: ER 11:40
DX: L02.211 Cutaneous abscess of abdominal wall (principal); Z48.00 Encounter for change or removal of nonsurgical wound dressing; R53.83 Other fatigue; F12.90 Cannabis use, unspecified, uncomplicated; F15.90 Other stimulant use, unspecified, uncomplicated; Z59.0 Homelessness; Z91.011 Allergy to milk products; Z88.8 Allergy status to other drugs, medicaments and biological substances; Z79.2 Long term (current) use of antibiotics; Z79.899 Other long term (current) drug therapy
CPT/HCPCS: 96372; 99285; J2270

== ENCOUNTER 2020-01-24 15:55 | Emergency (ER) | payer MEDICAID ==
[~2020-01-24] VITALS: Ht 185.4 cm; Wt 88.0 kg
[2020-01-24 16:08] VITALS: BP 112/72
== END 2020-01-24 16:45 | disposition home or self-care (01) ==
LOC: ER 15:56
DX: L02.213 Cutaneous abscess of chest wall (principal); F12.90 Cannabis use, unspecified, uncomplicated; F15.90 Other stimulant use, unspecified, uncomplicated; Z72.89 Other problems related to lifestyle; Z59.0 Homelessness; Z88.8 Allergy status to other drugs, medicaments and biological substances; Z91.018 Allergy to other foods; Z79.2 Long term (current) use of antibiotics; Z79.899 Other long term (current) drug therapy
CPT/HCPCS: 99281

== ENCOUNTER 2020-03-19 10:48 | Inpatient (IN) | payer MEDICAID ==
[~2020-03-19] VITALS: Ht 182.9 cm; Wt 84.7 kg
[~2020-03-19 10:48] MED LIST changes: -CLIN150C2 PO
[2020-03-19] MEDS ORDERED: LIDOcaine 1% W/epiNEPHrine 1:200,000 10ml vial IJ ONE (11:55)
[2020-03-19] MEDS ORDERED: morphine 4 MG/ML inj SYRINge IV ONE (12:35)
[2020-03-19] MEDS ORDERED: ondansetron/PF 4mg/2ml inj IV ONE (12:35)
[2020-03-19] MEDS ORDERED: morphine 4 MG/ML inj SYRINge IM ONE (12:55)
[2020-03-19] MEDS ORDERED: LORazepam 2 mg/ml vial IM ONE (13:35)
[2020-03-19] MEDS ORDERED: vancomycin/NS 1 GM ADD-VANTAGE 250 ML IV ONE (14:40)
[2020-03-19 15:15] LABS: BASOPHILS # (AUTO) 0.1 X10'3 (0-0.2); BASOPHILS % (AUTO) 0.7 % (0-1); EOSINOPHILS % (AUTO) 0.2 % (0-6); HEMATOCRIT 37.6 % (42.0-52.0); HEMOGLOBIN 12.1 g/dl (14.0-17.9); LYMPHOCYTES % (AUTO) 13.2 % (21-51); MEAN CORPUSCULAR HEMOGLOBIN 25.8 PG (27.0-31.0); MEAN CORPUSCULAR HGB CONC 32.2 g/dL (33.0-36.5); MEAN CORPUSCULAR VOLUME 80.4 FL (78-98); MEAN PLATELET VOLUME 7.4 FL (7.4-10.4); MONOCYTES # (AUTO) 0.4 X10'3 (0-0.9); MONOCYTES % (AUTO) 2.9 % (2-12); NEUTROPHILS # (AUTO) 12.6 X10'3 (1.8-7.7); PLATELET COUNT 274 X10'3 (140-440); RED BLOOD COUNT 4.68 X10'6 (4.70-6.10); RED CELL DISTRIBUTION WIDTH 13.6 % (11.5-14.5); WHITE BLOOD COUNT 15.2 X10'3 (4.5-11.0)
[2020-03-19 15:38] LABS: ALANINE AMINOTRANSFERASE 19 U/L (12-78); ALBUMIN 3.3 G/DL (3.4-5.0); ALBUMIN/GLOBULIN RATIO 0.8 (1.1-1.5); ALKALINE PHOSPHATASE 83 IU/L (46-116); ANION GAP 8 (8-16); ASPARTATE AMINO TRANSFERASE 19 U/L (10-37); BILIRUBIN,TOTAL 0.4 MG/DL (0.1-1.0); BLOOD UREA NITROGEN 9 MG/DL (7-18); BUN/CREATININE RATIO 13.4 (5.4-32.0); CALCIUM 9.2 MG/DL (8.5-10.1); CHLORIDE 100 MMOL/L (99-107); CREATININE 0.67 MG/DL (0.60-1.10); GLUCOSE 105 MG/DL (70-104); MAGNESIUM 1.9 MG/DL (1.5-2.4); POTASSIUM 3.8 MMOL/L (3.5-5.1); SODIUM 136 MMOL/L (135-145); TOTAL CARBON DIOXIDE 28.4 MMOL/L (24-32); TOTAL PROTEIN 7.6 G/DL (6.4-8.2); eGFR > 90 ML/MIN
[2020-03-19] MEDS ORDERED: ampicillin/sulbac 3gm/NS 100ml 100 ML IV ONE (15:55)
[2020-03-19] MEDS ORDERED: NO HOME MEDS (16:11)
[2020-03-19] MEDS ORDERED: potassium Cl 20 mEq SR tablet PO PRN ×2 (16:25)
[2020-03-19] MEDS ORDERED: magnesium 2GM in 50ml NS 50 ML IV PRN (16:25)
[2020-03-19] MEDS ORDERED: potassium CL 10mEq/100ml bag 100 ML IV PRN ×2 (16:25)
[2020-03-19] MEDS ORDERED: magnesium Cl slow-release 64mg tablet PO PRN (16:25)
[2020-03-19] MEDS ORDERED: acetaminophen 325mg tablet PO PRN (16:25)
[2020-03-19] MEDS ORDERED: magnesium 4gm in 100ml NS 100 ML IV PRN (16:25)
[2020-03-19] MEDS ORDERED: diphenhydrAMINE 25mg capsule PO PRN (16:25)
[2020-03-19] MEDS ORDERED: ondansetron/PF 4mg/2ml inj IV PRN (16:25)
[2020-03-19 17:23] LABS: CLARITY,URINE CLEAR (Clear); COLOR,URINE YELLOW (Yellow); GLUCOSE, URINE NEGATIVE (Neg); KETONES,URINE NEGATIVE (Neg); LEUKOCYTE ESTERASE ,URINE NEGATIVE (Neg); NITRITES, URINE NEGATIVE (Neg); OCCULT BLOOD,URINE NEGATIVE (Neg); PH,URINE 7.5 (4.8-8.0); PROTEIN,URINE NEGATIVE (Neg); URINE AMPHETAMINE SCREEN NEGATIVE (Neg); URINE BARBITUATE SCREEN NEGATIVE (Neg); URINE BENZODIAZEPINES SCREEN NEGATIVE (Neg); URINE CANNABINOID SCREEN POSITIVE (Neg); URINE COCAINE SCREEN NEGATIVE (Neg); URINE METHADONE SCREEN NEGATIVE (Neg); URINE OPIATE SCREEN POSITIVE (Neg); URINE PHENCYCLIDINE SCREEN NEGATIVE (Neg); UROBILINOGEN,URINE 0.2 E.U/dL (0.2-1.0)
[2020-03-19 17:24] LABS: UA COLLECTION TYPE URINAL
--- NOTE | 2020-03-19 19:00 | NUR ---
I have received report from Briana Salinas and had the opportunity to ask questions and assume patient care. pt to floor at 1945
--- NOTE | 2020-03-19 19:30 | NUR ---
PATIENTS BELONGINGS INSPECTED BY ER STAFF AND DISPOSED OF MULTIPLE NEEDLES AND DRUGS BY SECURITY.
[2020-03-19] MEDS: K and/or MAG REPLACEMENT MC SCH (19:50)
[2020-03-19] MEDS: normal saline 1000ml 1,000 ML IV SCH (19:56)
[2020-03-19 20:00] VITALS: BP 125/76
--- NOTE | 2020-03-19 21:48 | NUR ---
went through 2 back packs and one bag with non stick gloves. Found aprox 12 syringes, full bag of weed, scissors, and black heroin secruity came to bed side to dispose of paraphenalia and lock up a few personal belonging that were sharp.
--- NOTE | 2020-03-19 22:00 | NUR ---
patient was admitted to the surgical floor from the ER. I was told in report that the patient had three bags with him and that he was an IV drug user. In report form the ER, it was stated that all the patients belonging had been gone through. We were told that drug paraphernalia and needles had been removed from the patients bags. On the patients arrival to the unit, I went through all the patients belongings again. I found a knife, drug paraphernalia, multiple lighters, home medications and a needle. The needle was disposed of in the sharps container, medications were sent to pharmacy and security picked up the knife and other belongings that could not be kept in the patients room.
[2020-03-20] VITALS: BP 129/77
[2020-03-20] MEDS: piperacillin/tazo 4.5gm/100ml 100 ML IV SCH ×3 (00:33→16:28)
[2020-03-20] MEDS: normal saline 1000ml 1,000 ML IV SCH ×2 (02:25→05:34)
[2020-03-20] MEDS ORDERED: vancomycin/NS 1 GM ADD-VANTAGE 250 ML IV SCH (05:00)
--- NOTE | 2020-03-20 06:41 | NUR ---
Patient in room [facility]. I have received report from Loli GUERRA and had the opportunity to ask questions and assume patient care.
--- NOTE | 2020-03-20 06:46 | NUR ---
Problems reprioritized. Patient report given, questions answered & plan of care reviewed with Mariola GUERRA.
[2020-03-20 07:00] VITALS: BP 120/65
[2020-03-20 07:33] LABS: ALBUMIN 3.4 G/DL (3.4-5.0); ANION GAP 8 (8-16); BLOOD UREA NITROGEN 9 MG/DL (7-18); BUN/CREATININE RATIO 12.2 (5.4-32.0); CALCIUM 9.2 MG/DL (8.5-10.1); CHLORIDE 100 MMOL/L (99-107); CREATININE 0.74 MG/DL (0.60-1.10); GLUCOSE 96 MG/DL (70-104); MAGNESIUM 2.2 MG/DL (1.5-2.4); POTASSIUM 4.1 MMOL/L (3.5-5.1); SODIUM 137 MMOL/L (135-145); TOTAL CARBON DIOXIDE 29.4 MMOL/L (24-32); eGFR > 90 ML/MIN
[2020-03-20 07:37] LABS: BASOPHILS # (AUTO) 0.1 X10'3 (0-0.2); BASOPHILS % (AUTO) 0.8 % (0-1); EOSINOPHILS % (AUTO) 0.2 % (0-6); HEMATOCRIT 38.9 % (42.0-52.0); HEMOGLOBIN 12.6 g/dl (14.0-17.9); LYMPHOCYTES # (AUTO) 2.3 X10'3 (1.1-4.8); LYMPHOCYTES % (AUTO) 15.8 % (21-51); MEAN CORPUSCULAR HEMOGLOBIN 26.1 PG (27.0-31.0); MEAN CORPUSCULAR HGB CONC 32.3 g/dL (33.0-36.5); MEAN CORPUSCULAR VOLUME 80.7 FL (78-98); MEAN PLATELET VOLUME 7.9 FL (7.4-10.4); MONOCYTES # (AUTO) 0.7 X10'3 (0-0.9); MONOCYTES % (AUTO) 4.4 % (2-12); NEUTROPHILS # (AUTO) 11.6 X10'3 (1.8-7.7); NEUTROPHILS % (AUTO) 78.8 % (42-75); PLATELET COUNT 296 X10'3 (140-440); RED BLOOD COUNT 4.82 X10'6 (4.70-6.10); RED CELL DISTRIBUTION WIDTH 13.6 % (11.5-14.5); WHITE BLOOD COUNT 14.7 X10'3 (4.5-11.0)
[2020-03-20] MEDS: K and/or MAG REPLACEMENT MC SCH ×2 (08:00→20:00)
[2020-03-20 11:00] VITALS: BP 107/67
--- NOTE | 2020-03-20 14:49 | NUR ---
Paged Dr. Marie: PAGER ID: [phone] MESSAGE: Surgical Desi RN ext [phone]. RE: Wojciech Donovan. Patient requesting Suboxone and Nicotine patch orders. He said he was on them prior to admission.
[2020-03-20] MEDS ORDERED: BUPR1TAB45 SL (15:19)
[2020-03-20] MEDS ORDERED: NICO-687 TD (15:20)
--- NOTE | 2020-03-20 15:29 | NUR ---
Medication reconciliation updated and reviewed with patient. Dr. Marie notified about this via paging system
[2020-03-20] MEDS: nicotine 21mg patch - 24 hr TD SCH (16:27)
[2020-03-20] MEDS: buprenorphine/naloxone 8MG-2MG SUBlingual film SL SCH (16:27)
[2020-03-20] MEDS: vancomycin/NS 1 GM ADD-VANTAGE 250 ML X 1 DOSE IV SCH ×2 (16:28→23:57)
--- NOTE | 2020-03-20 18:39 | NUR ---
Problems reprioritized. Patient report given, questions answered & plan of care reviewed with Tian GUERRA.
[2020-03-20 19:00] VITALS: BP 111/57
[2020-03-20] MEDS: lactobacillus rhamnosus 10,000 MMU CELLS/CAPSULE PO SCH (19:24)
[2020-03-20] MEDS: HYDROcodone/acetaminophen 10/325mg tab PO PRN (22:09)
[2020-03-21] VITALS: BP 108/62
[2020-03-21] MEDS: normal saline 1000ml 1,000 ML IV SCH (01:54)
[2020-03-21] MEDS: piperacillin/tazo 4.5gm/100ml 100 ML IV SCH ×2 (01:54→10:34)
--- NOTE | 2020-03-21 06:20 | NUR ---
Patient in room [facility]. I have received report from CHARLIE Overton and had the opportunity to ask questions and assume patient care.
[2020-03-21 07:00] VITALS: BP 98/57
[2020-03-21] MEDS: vancomycin/NS 1 GM ADD-VANTAGE 250 ML X 1 DOSE IV SCH (07:05)
[2020-03-21] MEDS: nicotine 21mg patch - 24 hr TD SCH (07:17)
[2020-03-21] MEDS: lactobacillus rhamnosus 10,000 MMU CELLS/CAPSULE PO SCH (07:17)
[2020-03-21] MEDS: HYDROcodone/acetaminophen 10/325mg tab PO PRN ×2 (07:18→11:51)
[2020-03-21] MEDS: K and/or MAG REPLACEMENT MC SCH (08:00)
[2020-03-21] MEDS: buprenorphine/naloxone 8MG-2MG SUBlingual film SL SCH (08:00)
[2020-03-21 08:34] LABS: BASOPHILS # (AUTO) 0.1 X10'3 (0-0.2); BASOPHILS % (AUTO) 1.1 % (0-1); EOSINOPHILS # (AUTO) 0.1 X10'3 (0-0.9); EOSINOPHILS % (AUTO) 1.1 % (0-6); HEMATOCRIT 37.3 % (42.0-52.0); HEMOGLOBIN 12.6 g/dl (14.0-17.9); LYMPHOCYTES # (AUTO) 2.4 X10'3 (1.1-4.8); LYMPHOCYTES % (AUTO) 25.2 % (21-51); MEAN CORPUSCULAR HEMOGLOBIN 27.2 PG (27.0-31.0); MEAN CORPUSCULAR HGB CONC 33.7 g/dL (33.0-36.5); MEAN CORPUSCULAR VOLUME 80.8 FL (78-98); MONOCYTES # (AUTO) 0.6 X10'3 (0-0.9); MONOCYTES % (AUTO) 5.8 % (2-12); NEUTROPHILS # (AUTO) 6.5 X10'3 (1.8-7.7); NEUTROPHILS % (AUTO) 66.8 % (42-75); PLATELET COUNT 269 X10'3 (140-440); RED BLOOD COUNT 4.62 X10'6 (4.70-6.10); RED CELL DISTRIBUTION WIDTH 13.4 % (11.5-14.5); WHITE BLOOD COUNT 9.7 X10'3 (4.5-11.0)
[2020-03-21 08:44] LABS: ALBUMIN 3.3 G/DL (3.4-5.0); ANION GAP 6 (8-16); BLOOD UREA NITROGEN 13 MG/DL (7-18); BUN/CREATININE RATIO 15.7 (5.4-32.0); CALCIUM 8.9 MG/DL (8.5-10.1); CHLORIDE 102 MMOL/L (99-107); CREATININE 0.83 MG/DL (0.60-1.10); GLUCOSE 85 MG/DL (70-104); MAGNESIUM 2.2 MG/DL (1.5-2.4); POTASSIUM 4.1 MMOL/L (3.5-5.1); SODIUM 136 MMOL/L (135-145); TOTAL CARBON DIOXIDE 28.1 MMOL/L (24-32); eGFR > 90 ML/MIN
[2020-03-21 11:22] VITALS: BP 103/58
[2020-03-21] MEDS ORDERED: LORazepam 1 MG tablet PO PRN (14:35)
--- NOTE | 2020-03-21 15:14 | NUR ---
Patient reports having anxiety, informed patient that the doctor ordered PO ativan for his anxiety. Patient pacing in his room stating "I just cant do this I have to go." Informed patient that he needs to stay for IV antibiotics, and that if he goes, he eye will only worsen, and eventually affect his sight. Asked patient to give me time to get AMA form to sign and notify his doctor. Notified Dr. Marie. Upon re-entering patient's room, patient had ripped out his own IV and was gathering his belongings. Pt states "I don't know what to say but I can't stay here. I can't stay in any confined space." Retrieved patient's home medications from pharmacy. Pt left with all belongings and home medications. Patient states he understands the risks of leaving.
[2020-03-21] MEDS ORDERED: VANCOMYCIN LEVEL IV ONE (15:30)
== END 2020-03-21 15:11 | disposition left against medical advice (07) | DRG 383 ==
LOC: ER 10:49 → ED HOLD 16:25 → SUR 3N 19:45
PROVIDERS: ADMIT Internal Medicine; ATTEND Internal Medicine
PROC: 089 Eye, Drainage (ICD-10-PCS; principal; 2020-03-19)
DX: L03.213 Periorbital cellulitis (principal); F17.210 Nicotine dependence, cigarettes, uncomplicated; F41.8 Other specified anxiety disorders; Z53.29 Procedure and treatment not carried out because of patient's decision for other reasons; Z59.0 Homelessness; Z88.8 Allergy status to other drugs, medicaments and biological substances
CPT/HCPCS: 36415; 80048; 80053; 80305; 81003; 83605; 83735; 84145; 85025; 87040; 87081; 93005; 96374; 99285; G0378; J0295; J2060; J2270; J2543; J3370; J7030